=== PATIENT | male | born 1990 | race Caucasian/White ===

== ENCOUNTER → 2017-07-08 | Emergency (ER) | payer BC, OTHER ==
[~2017-07-08] VITALS: Ht 193 cm; Wt 108.0 kg
[~2017-07-08] MED LIST: DIATRIZOATE MEGL/DIATRIZOA SOD 30 ML BTL PO ONE; IOPAMIDOL 370 MG/ML 200 ML INFUS..BTL INJ ONE; MORPHINE SULFATE 2 MG/ML SYR ONE; MORPHINE SULFATE 4 MG/ML SYR IV STA; ONDANSETRON HCL INJ 2 MG/ML VIAL IV STA; SODIUM CHLORIDE 0.9% 1000ML 1,000 ML IV SCH; SODIUM CHLORIDE 0.9% 1000ML 1,000 ML IV STA; SODIUM CHLORIDE 0.9% 50ML 50 ML ONE
[2017-07-08 12:11] LABS: BASOPHILS # (AUTO) 0.1 (0.0-0.1); BASOPHILS % 0.6 % (0.0-1.0); EOSINOPHILS # (AUTO) 0.1 (0.0-0.4); EOSINOPHILS % 0.8 % (0.0-6.0); HEMATOCRIT 48.3 % (38.2-49.6); HEMOGLOBIN 16.9 g/dL (14.0-18.0); LYMPHOCYTES # (AUTO) 0.8 (1.0-3.2); LYMPHOCYTES % 10.5 % (18.0-39.1); MEAN CORPUSCULAR HEMOGLOBIN 32.1 pg (28-32); MEAN CORPUSCULAR VOLUME 91.7 fL (81-99); MONOCYTES # (AUTO) 0.7 (0.2-0.8); MONOCYTES % 8.3 % (4.4-11.3); NEUTROPHILS # (AUTO) 6.3 (2.1-6.9); PLATELET COUNT 334 x10e3/uL (140-360); RED BLOOD COUNT 5.27 x10e6/uL (4.3-5.7); RED CELL DISTRIBUTION WIDTH 12.2 % (11.7-14.4)
[2017-07-08 12:12] LABS: CLARITY,URINE CLEAR (CLEAR); KETONES,URINE 2+ (NEGATIVE); LEUKOCYTE ESTERASE ,URINE TRACE (NEGATIVE); NITRITE,URINE NEGATIVE (NEGATIVE); URINE UROBILINOGEN 8 mg/dL (0.2 - 1)
[2017-07-08 12:26] LABS: BILIRUBIN,URINE 1+ (NEGATIVE); COLOR,URINE ORANGE (YELLOW); PROTEIN,URINE DIPSTICK 1+ (NEGATIVE)
[2017-07-08 12:54] LABS: ALANINE AMINOTRANSFERASE 16 IU/L (0-55); ALBUMIN 4.4 g/dL (3.5-5.0); ALBUMIN/GLOBULIN RATIO 1.3 (0.8-2.0); ALKALINE PHOSPHATASE 88 IU/L (40-150); ANION GAP 16.9 mmol/L (8-16); BLOOD UREA NITROGEN 13 mg/dL (7-26); BUN/CREATININE RATIO 12 (6-25); CALCIUM 9.2 mg/dL (8.4-10.2); CARBON DIOXIDE 24 mmol/L (22-29); CHLORIDE 101 mmol/L (98-107); CREATININE, SERUM 1.05 mg/dL (0.72-1.25); EST GLOMERULAR FILTRATION RATE > 60 ML/MIN (60-); GLUCOSE 97 mg/dL (74-118); POTASSIUM 3.9 mmol/L (3.5-5.1); SODIUM 138 mmol/L (136-145)
[2017-07-08 13:29] LABS: WBC,URINE (MAN) 0-5 /HPF (0-5)
[2017-07-08 13:31] LABS: BACTERIA,URINE FEW /HPF; EPITHELIAL CELLS,URINE RARE /LPF
[2017-07-08 13:32] LABS: MUCUS,URINE FEW (RARE)
--- NOTE | 2017-07-08 14:27 | Diagnostic Imaging Report ---
PROCEDURE:CT ABDOMEN AND PELVIS WITH CONTRAST COMPARISON: CT abdomen/pelvis 06/02/15 INDICATIONS:NAUSEA, VOMITING, APPY TECHNIQUE: Multidetector CT scanning of the abdomen and pelvis was performed after the administration of 100 cc of nonionic contrast. Coronal and sagittal reformations were obtained. Routine protocol performed. FINDINGS: Lung bases: Clear. Visualized portion of the mediastinum is normal. Liver: The normal size and attenuation without mass Biliary: The gallbladder is present and appears normal. Biliary tree is normal Spleen: Measures 15 cm in length (previously, 14 cm). No mass. Pancreas: No mass or dilatation Adrenal Glands: No mass Kidneys: Symmetric enhancement. No hydronephrosis. No mass. Gastrointestinal: The stomach is normal. Small bowel is well-opacified and normal in diameter with normal wall thickness. Large bowel is unopacified. No mural thickening or pericolonic inflammation. The appendix is not visualized. Vasculature: Normal in diameter and morphology. Peritoneum/Retroperitoneum: No free fluid or fluid collection. Lymph nodes: No lymphadenopathy. Bladder: Normal. No ureteral dilatation. Right ureteral calculus is no longer visualized. Musculoskeletal: The bones are unremarkable for age. No focal osseous lesions. No evidence of hernia. CONCLUSION: 1. No bowel obstruction or inflammation. However, the appendix is not visualized. As a result, appendicitis cannot be excluded. 2. Increasing splenomegaly without mass. No lymphadenopathy. 3. No renal calculus or obstructive uropathy. Dictated by: Cj Rosales M.D. on 07/08/2017 at 14:27 Electronically approved by: Cj Rosales M.D. on 07/08/2017 at 14:27
== END | disposition home or self-care (01) ==
LOC: ER 10:52
DX: R10.31 Right lower quadrant pain (principal); R31.9 Hematuria, unspecified; R11.0 Nausea; R19.7 Diarrhea, unspecified; R16.1 Splenomegaly, not elsewhere classified; Z87.442 Personal history of urinary calculi; F17.290 Nicotine dependence, other tobacco product, uncomplicated
CPT/HCPCS: 36415; 74177; 80053; 81001; 85025; 99284; J2270; J2405; J7030; Q9967

== ENCOUNTER 2018-10-15 21:56 | Emergency (ER) | payer BC, OTHER ==
[~2018-10-15] VITALS: Ht 193 cm; Wt 111.1 kg
--- OUTSIDE RECORDS SUMMARY | 2018-10-15 21:58 | XMS REPORT ---
Author Author [facility] Address Unknown Phone Unavailable Care Team Providers [facility] Grinding Machine Adjuster Name Role Phone Jose HARRIS Unavailable Unavailable Problems This patient has no known problems. Allergies, Adverse Reactions, Alerts This patient has no known allergies or adverse reactions. Medications This patient has no known medications. Results Test Description Test Time Test Comments Text Results Atomic Results Result Comments CT ABDOMEN/PELVIS W [place] [address] Patient Name: ARI LEIGH MR #: [id number] : 1990 Age/Sex: 27/M Req #: [id number] Adm Physician: Ordered by: PEPE DEGROOT [employer]ENTS COORDINATOR Report #: [id number] Location: ER Room/Bed: Procedure: [id number] CT/CT ABDOMEN/PELVIS W Exam Date: 07/08/17 Exam Time: 1343 REPORT STATUS: Signed PROCEDURE: CT ABDOMEN AND PELVIS WITH CONTRAST COMPARISON: CT abdomen/pelvis 06/02/15 INDICATIONS: NAUSEA, VOMITING, APPY TECHNIQUE: Multidetector CT scanning of the abdomen and pelvis was performed after the administration of 100 cc of nonionic contrast. Coronal and sagittal reformations were obtained. Routine protocol performed. FINDINGS: Lung bases: Clear. Visualized portion of the mediastinum is normal. Liver: The normal size and attenuation without mass Biliary: The gallbladder is present and appears normal. Biliary tree is normal Spleen: Measures 15 cm in length (previously, 14 cm). No mass. Pancreas: No mass or dilatation Adrenal Glands: No mass Kidneys: Symmetric enhancement. No hydronephrosis. No mass. Gastrointestinal: The stomach is normal. Small bowel is well-opacified and normal in diameter with normal wall thickness. Large bowel is unopacified. No mural thickening or pericolonic inflammation. The appendix is not visualized. Vasculature: Normal in diameter and morphology. Peritoneum/Retroperitoneum: No free fluid or fluid collection. Lymph nodes: No lymphadenopathy. Bladder: Normal. No ureteral dilatation. Right ureteral calculus is no longer visualized. Musculoskeletal: The bones are unremarkable for age. No focal osseous lesions. No evidence of hernia. CONCLUSION: 1. No bowel obstruction or inflammation. However, the appendix is not visualized. As a result, appendicitis cannot be excluded. 2. Increasing splenomegaly without mass. No lymphadenopathy. 3. No renal calculus or obstructive uropathy. Dictated by: Demar Rosales M.D. on 07/08/2017 at 14:27 Electronically approved by: Demar Rosales M.D. on 07/08/2017 at 14:27 Dictated By: DEMAR ROSALES MD [id number] Transcribed By: RODRIGUEZ on 07/08/17 1427 COPY TO: PEPE DEGROOT NP
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
== END 2018-10-16 00:50 | disposition home or self-care (01) ==
LOC: ER 21:56
DX: S02.2XXA Fracture of nasal bones, initial encounter for closed fracture (principal); Y04.0XXA Assault by unarmed brawl or fight, initial encounter; Y93.64 Activity, baseball; Y92.320 Baseball field as the place of occurrence of the external cause
CPT/HCPCS: 70486; 99283

== ENCOUNTER 2020-06-30 06:09 | Emergency (ER) | payer BC, OTHER ==
[~2020-06-30] VITALS: Ht 193 cm; Wt 111.1 kg
[2020-06-30] MEDS ORDERED: KETOROLAC TROMETHAMINE 30 MG/ML VIAL IV STA (06:12)
[2020-06-30] MEDS ORDERED: ONDANSETRON HCL INJ 2MG/ML 2ML 2 MG/ML VIAL IV STA (06:12)
[2020-06-30] MEDS ORDERED: SODIUM CHLORIDE 0.9% 1000ML 1,000 ML IV STA (06:12)
[2020-06-30] MEDS ORDERED: PANTOPRAZOLE 40 MG 10ML VIAL IV STA (06:15)
[2020-06-30] MEDS ORDERED: ASPIRIN 81 MG CHEW TAB PO ONE (06:15)
[2020-06-30] MEDS ORDERED: MAGNESIUM/ALUMINUM/SIMETHICONE 30 ML UDC PO ONE (06:15)
[2020-06-30 06:32] LABS: BASOPHILS # (AUTO) 0.1 (0.0-0.1); BASOPHILS % 1.1 % (0.0-1.0); EOSINOPHILS # (AUTO) 0.5 (0.0-0.4); EOSINOPHILS % 6.1 % (0.0-6.0); HEMATOCRIT 47.5 % (38.2-49.6); HEMOGLOBIN 16.4 g/dL (14.0-18.0); LYMPHOCYTES # (AUTO) 1.9 (1.0-3.2); LYMPHOCYTES % 24.5 % (18.0-39.1); MEAN CORPUSCULAR HEMOGLOBIN 32.9 pg (28-32); MEAN CORPUSCULAR HGB CONC 34.5 g/dL (31-35); MEAN CORPUSCULAR VOLUME 95.2 fL (81-99); MONOCYTES # (AUTO) 0.5 (0.2-0.8); MONOCYTES % 6.2 % (4.4-11.3); NEUTROPHILS # (AUTO) 4.9 (2.1-6.9); NEUTROPHILS % 61.5 % (38.7-80.0); PLATELET COUNT 351 x10e3/uL (140-360); RED BLOOD COUNT 4.99 x10e6/uL (4.3-5.7); RED CELL DISTRIBUTION WIDTH 11.8 % (11.7-14.4)
[2020-06-30 06:50] LABS: ALANINE AMINOTRANSFERASE 125 IU/L (0-55); ALBUMIN 4.7 g/dL (3.5-5.0); ALBUMIN/GLOBULIN RATIO 1.5 (0.8-2.0); ALKALINE PHOSPHATASE 89 IU/L (40-150); ANION GAP 17.1 mmol/L (8-16); BLOOD UREA NITROGEN 9 mg/dL (7-26); BUN/CREATININE RATIO 9 (6-25); CALCIUM 9.1 mg/dL (8.4-10.2); CARBON DIOXIDE 22 mmol/L (22-29); CHLORIDE 107 mmol/L (98-107); CREATINE KINASE 76 IU/L (30-200); CREATININE, SERUM 1.02 mg/dL (0.72-1.25); EST GLOMERULAR FILTRATION RATE > 60 ML/MIN (60-); GLUCOSE 99 mg/dL (74-118); POTASSIUM 4.1 mmol/L (3.5-5.1); SODIUM 142 mmol/L (136-145)
[2020-06-30 07:11] LABS: LIPASE 41 U/L (8-78)
[2020-06-30] MEDS ORDERED: PANTOPRAZOLE SO40 MG PO (08:25)
[2020-06-30] MEDS ORDERED: ZOFRAN4 MG SL (08:25)
[2020-06-30] MEDS ORDERED: SODIUM CHLORIDE 0.9% 50ML 50 ML ONE (12:55)
[2020-06-30] MEDS ORDERED: IOPAMIDOL 370 MG/ML 200 ML INFUS..BTL INJ ONE (12:57)
== END 2020-06-30 08:47 | disposition home or self-care (01) ==
LOC: ER 06:13
DX: R10.13 Epigastric pain (principal); K80.20 Calculus of gallbladder without cholecystitis without obstruction; K76.0 Fatty (change of) liver, not elsewhere classified
CPT/HCPCS: 36415; 71045; 74177; 80053; 80320; 82550; 82553; 83690; 84484; 85025; 99284; Q9967

== ENCOUNTER 2022-06-13 21:57 | Emergency (ER) | payer BC, OTHER ==
[~2022-06-13] VITALS: Ht 193 cm; Wt 108.9 kg
[~2022-06-13 21:57] MED LIST changes: -DIATRIZOATE MEGL/DIATRIZOA SOD 30 ML BTL PO ONE; -IOPAMIDOL 370 MG/ML 200 ML INFUS..BTL INJ ONE; -MORPHINE SULFATE 2 MG/ML SYR ONE; -MORPHINE SULFATE 4 MG/ML SYR IV STA; -ONDANSETRON HCL INJ 2 MG/ML VIAL IV STA; +PANTOPRAZOLE SO40 MG PO; -SODIUM CHLORIDE 0.9% 1000ML 1,000 ML IV SCH; -SODIUM CHLORIDE 0.9% 1000ML 1,000 ML IV STA; -SODIUM CHLORIDE 0.9% 50ML 50 ML ONE; +ZOFRAN4 MG SL
[2022-06-13 22:26] LABS: BASOPHILS # (AUTO) 0.2 (0.0-0.1); BASOPHILS % 1.7 % (0.0-1.0); EOSINOPHILS # (AUTO) 0.7 (0.0-0.4); EOSINOPHILS % 6.7 % (0.0-6.0); HEMATOCRIT 51.8 % (38.2-49.6); LYMPHOCYTES # (AUTO) 2.3 (1.0-3.2); LYMPHOCYTES % 23.8 % (18.0-39.1); MEAN CORPUSCULAR HEMOGLOBIN 31.5 pg (28-32); MEAN CORPUSCULAR HGB CONC 30.9 g/dL (31-35); MONOCYTES # (AUTO) 0.6 (0.2-0.8); MONOCYTES % 6.5 % (4.4-11.3); NEUTROPHILS # (AUTO) 5.9 (2.1-6.9); NEUTROPHILS % 60.7 % (38.7-80.0); PLATELET COUNT 440 x10e3/uL (140-360); RED BLOOD COUNT 5.08 x10e6/uL (4.3-5.7); RED CELL DISTRIBUTION WIDTH 11.6 % (11.7-14.4)
[2022-06-13 22:42] LABS: ALBUMIN 4.6 g/dL (3.5-5.0); ALBUMIN/GLOBULIN RATIO 1.2 (0.8-2.0); CALCIUM 9.6 mg/dL (8.4-10.2); CREATININE, SERUM 1.21 mg/dL (0.72-1.25)
[2022-06-13 22:48] LABS: CREATINE KINASE MB 0.9 ng/mL (0-5.0)
== END 2022-06-14 00:10 | disposition home or self-care (01) ==
LOC: ER 22:00
DX: R07.9 Chest pain, unspecified (principal)
CPT/HCPCS: 36415; 71045; 80053; 82550; 82553; 84484; 85025; 93005; 99283

== ENCOUNTER 2024-04-13 11:57 | Emergency (ER) | payer BC ==
[~2024-04-13] VITALS: Ht 190.5 cm; Wt 103.0 kg
[2024-04-13 12:08] VITALS: PULSE 87; RESP 16; TEMP 98.6; O2SAT 100
[2024-04-13] MEDS: ONDANSETRON HCL INJ 2MG/ML 2ML 2 MG/ML VIAL IV STA (12:50)
[2024-04-13] MEDS: GLUCAGON FOR INJ 1 MG VIAL IV ONE (12:50)
== END 2024-04-13 15:22 | disposition home or self-care (01) ==
LOC: ER 12:11
DX: R09.A0 Foreign body sensation, unspecified (principal); T17.298A Other foreign object in pharynx causing other injury, initial encounter; I10 Essential (primary) hypertension; E78.5 Hyperlipidemia, unspecified
CPT/HCPCS: 99284; J1610; J2405

== ENCOUNTER → 2024-05-05 | Day surgery (SDC) | payer BC ==
[~2024-05-05] MED LIST changes: +FENTANYL CITRATE/PF 100MCG/2 ML INJ ONE; +HYOSCYAMINE SULFATE 0.5 MG/ML INJ ONE; +LIDOCAINE HCL 2% LOCAL INJ 5 ML SDV VIAL INJ ONE; +LISINOPRIL10 MG PO; +MIDAZOLAM HCL 2 MG/2 ML VIAL ONE; +MULTI-VITAMIN1 EACH PO; +ONDANSETRON HCL INJ 2MG/ML 2ML 2 MG/ML VIAL ONE; +PROPOFOL IV EMULSION 10 MG/ML 20 ML VIAL ONE; +ROSUVASTATIN CA20 MG PO; +TESTOSTERONE SHOT; +[UNRECOGNIZED DRUG - OTHER] PO
[2024-05-05] MEDS: LACTATED RINGER'S 1,000 ML ONE (08:21)
[2024-05-05 10:35] VITALS: BP 126/71; PULSE 76; RESP 17; O2SAT 98
== END | disposition home or self-care (01) ==
LOC: ENDO 08:05
PROVIDERS: ATTEND Internal Medicine Gastroenterology
DX: K22.2 Esophageal obstruction (principal); K29.70 Gastritis, unspecified, without bleeding; Z71.3 Dietary counseling and surveillance; I10 Essential (primary) hypertension; Z71.89 Other specified counseling; E78.5 Hyperlipidemia, unspecified; F17.220 Nicotine dependence, chewing tobacco, uncomplicated; Z79.899 Other long term (current) drug therapy; Z68.27 Body mass index [BMI] 27.0-27.9, adult
CPT/HCPCS: 43239; 43450; J2003; J2250; J2405; J2470; J2704; J3010; J7121; J1980

== ENCOUNTER 2024-09-17 22:49 | Emergency (ER) | payer BC ==
[~2024-09-17] VITALS: Ht 193 cm; Wt 99.8 kg
[~2024-09-17 22:49] MED LIST changes: -FENTANYL CITRATE/PF 100MCG/2 ML INJ ONE; -HYOSCYAMINE SULFATE 0.5 MG/ML INJ ONE; -LIDOCAINE HCL 2% LOCAL INJ 5 ML SDV VIAL INJ ONE; -MIDAZOLAM HCL 2 MG/2 ML VIAL ONE; -ONDANSETRON HCL INJ 2MG/ML 2ML 2 MG/ML VIAL ONE; -PROPOFOL IV EMULSION 10 MG/ML 20 ML VIAL ONE
[2024-09-17 22:52] VITALS: PULSE 102; RESP 18; TEMP 98.6
[2024-09-17] MEDS: IBUPROFEN 600 MG TAB PO STA (23:13)
[2024-09-18 00:16] VITALS: BP 131/85; PULSE 91; RESP 18; TEMP 98.6; O2SAT 99
[2024-09-18] MEDS ORDERED: NAPROXEN250 MG PO (00:16)
== END 2024-09-18 00:32 | disposition home or self-care (01) ==
LOC: FSED 22:53
DX: S52.572A Other intraarticular fracture of lower end of left radius, initial encounter for closed fracture (principal); S62.112A Displaced fracture of triquetrum [cuneiform] bone, left wrist, initial encounter for closed fracture; W01.0XXA Fall on same level from slipping, tripping and stumbling without subsequent striking against object, initial encounter; Y93.01 Activity, walking, marching and hiking; Y92.89 Other specified places as the place of occurrence of the external cause; I10 Essential (primary) hypertension; E78.5 Hyperlipidemia, unspecified
CPT/HCPCS: 99284